=== PATIENT | female | born 1975 | race African-American/Black ===

== ENCOUNTER 2018-08-31 10:03 | Emergency (ER) | payer SELFPAY ==
[~2018-08-31] VITALS: Ht 154.9 cm; Wt 55.8 kg
[2018-08-31] MEDS ORDERED: NKM (10:11)
--- NOTE | 2018-08-31 10:15 | NUR ---
ED Nurse Note: Patient walked into ED c/o right eye discomfort, pain, itchiness, and teary since 08/25/18. patient reports it's progressively getting worse. patient is alert awake x4 ambulatory, breathing unlabored and even, skin is warm to touch, visual acuity performed.
[2018-08-31 10:16] VITALS: BP 128/69
--- NOTE | 2018-08-31 10:23 | Emergency Room Report ---
History of Present Illness General Chief Complaint: Eye Problems Source: Patient Present Illness HPI Patient presents with complaints of irritation and discharge from the right eye for the past 6 days Denies any fevers or chills Denies any change in vision she does feel that the area is somewhat itchy in nature Denies any other recent contact Denies any neck pain or photophobia denies any vomiting or diarrhea she has noticed increased crusting in the Right side in the morning And again awakens with increased discharge Allergies: Coded Allergies: No Known Allergies (Unverified , 08/31/18) Patient History Past Medical History: see triage record Pertinent Family History: none Reviewed Nursing Documentation: PMH: Agreed; PSxH: Agreed Nursing Documentation-PMH Past Medical History: No Stated History Review of Systems All Other Systems: negative except mentioned in HPI Physical Exam Vital Signs Date Time Temp Pulse Resp B/P (MAP) Pulse Ox O2 Delivery O2 Flow Rate FiO2 08/31/18 10:09 98.4 85 14 131/70 (90) 96 Room Air Sp02 EP Interpretation: reviewed, normal General Appearance: well appearing, no apparent distress Head: normocephalic, atraumatic Eyes: right eye other - Mild conjunctival erythema, discharge with yellow crusting in the central area, no obvious lesions fluorocene negative ENT: normal pharynx, no angioedema, normal voice Neck: supple Respiratory: no retraction, no accessory muscle use Cardiovascular #1: regular rate, rhythm Musculoskeletal: normal inspection Neurologic: alert, oriented x3, responsive Skin: no rash Lymphatic: normal inspection Medical Decision Making Diagnostic Impression: Primary Impression: Conjunctivitis ER Course Multiple differentials and consideration Including but not limited to conjunctivitis, bacterial, viral, versus allergic Other neurological and neurosurgical pathology patient's exam is consistent with likely bacterial conjunctivitis given the duration and the yellowish discharge No obvious signs of proptosis or sunken eye and patient is stable for initial conservative outpatient trial Last Vital Signs Date Time Temp Pulse Resp B/P (MAP) Pulse Ox O2 Delivery O2 Flow Rate FiO2 08/31/18 10:16 98.4 81 16 128/69 99 Room Air Status: unchanged Disposition: HOME, SELF-CARE Condition: Stable Additional Instructions: Patient is provided with the discharge instructions notified to follow up with primary doctor in the next 2-3 days otherwise return to the er with any worsening symptoms. Please note that this report is being documented using [employer] technology. This can lead to erroneous entry secondary to incorrect interpretation by the dictating instrument. Orville Medina DO Aug 31, 2018 10:23
[2018-08-31] MEDS ORDERED: GENTAK5 ML RIGHT EYE (10:24)
[2018-08-31 10:48] VITALS: BP 128/69
--- NOTE | 2018-08-31 10:48 | NUR ---
ER DISCHARGE NOTE: Patient is cleared to be discharged per LELO CASTILLO, pt is aox4, on room air, with stable vital signs. pt was given dc and prescription instructions, pt was able to verbalize understanding, pt id removed without complications. pt is able to ambulate with steady gait. pt took all belongings.
== END 2018-08-31 10:48 | disposition home or self-care (01) ==
LOC: EMR 10:33
DX: H10.9 Unspecified conjunctivitis (principal)
CPT/HCPCS: 99281